=== PATIENT | female | born 1955 | race Caucasian/White ===

== ENCOUNTER → 2019-03-04 | Outpatient (CLI) | payer OTHER ==
[~2019-03-04] MED LIST: RT-ALBUTEROL SULF 2.5 MG/3 ML PRE-MIX VIAL INH ONE; RT-ALBUTEROL SULF 2.5 MG/3 ML PRE-MIX VIAL ONE
== END ==
LOC: RT 10:41
PROVIDERS: ATTEND Surgery
DX: Z02.71 Encounter for disability determination (principal); F32.9 Major depressive disorder, single episode, unspecified; R03.0 Elevated blood-pressure reading, without diagnosis of hypertension; R06.02 Shortness of breath
CPT/HCPCS: 94060; 94640; 94729

== ENCOUNTER → 2019-03-15 | Outpatient (CLI) | payer OTHER ==
--- NOTE | 2019-03-15 15:04 | Diagnostic Imaging Report ---
Patient History: Hypertension. Shortness of breath. Technique: Two views of the chest Comparison: None FINDINGS: The lung volumes are normal. No focal consolidation is seen. No large pleural effusion or pneumothorax is seen. The cardiomediastinal silhouette is normal in size and contour. No acute osseous abnormality is seen. IMPRESSION: No acute pulmonary abnormality seen. Dictated by: Dictated on workstation # [id number]
== END ==
LOC: RAD 13:52
PROVIDERS: ATTEND Surgery
DX: Z02.71 Encounter for disability determination (principal); F32.9 Major depressive disorder, single episode, unspecified; I10 Essential (primary) hypertension; R06.02 Shortness of breath
CPT/HCPCS: 71046

== ENCOUNTER 2020-10-23 19:56 | Emergency (ER) | payer MEDICARE, MEDICAID ==
--- NOTE | 2020-10-23 20:13 | ED CPR ---
HPI-CPR General Stated Complaint: PEDRO FABIAN History of Present Illness Date Seen by Provider: Oct 23, 2020 Time Seen by Provider: 20:00 Initial Comments 65-year-old female brought in by EMS with CODE BLUE in process. EMS was called out for unresponsive patient. Patient has been unresponsive for unknown time. When EMS arrived patient had agonal breathing, CPR was started. Patient's in itial rhythm in the field was asystole. She was given epinephrine. She had a brief episode of V. fib which shock was given. Patient's next rhythm was asystole. EMS arrived with approximately 15 to 20 minutes of CPR in progress. Upon arrival to ER, rhythm check was performed patient was in asystole along with bedside ultrasound. Bedside ultrasound showed no cardiac activity. Another round of epinephrine was given with approximately 3 to 5 minutes more of CPR. At that time another ultrasound was obtained which once again showed no cardiac rhythm with asystole. At that time code was called and patient was determined to be . Patient went to lay down her today because she was not feeling well. Upon arrival she already has some mottling of her lower extremities. Patient had a Combitube in place. Allergies and Home Medications Allergies Coded Allergies: No Known Drug Allergies (Unverified , 03/04/19) Patient Home Medication List Home Medication List Reviewed: Yes Review of Systems Review of Systems Constitutional: see HPI Other Comments Patient intubated, CPR in progress Past Teukjlg-Hdremb-Zbnplb Hx Past Med/Social Hx: Reviewed Nursing Past Med/Soc Hx Physical Exam Vital Signs Vital Signs - First Documented 10/23/20 19:56 O2 Delivery Ambu Bag Capillary Refill : Height, Weight, BMI Height: '" Weight: lbs. oz. kg; BMI Method: General Appearance: Other (cpr in progress ) Neck: Supple Respiratory: Other (intubated, assisted breathing ) Cardiovascular: Other Skin: Cool, Other (Discoloration from approximately mid chest up consistent with possible PE, slight mottling bilateral lower extremities) Progress/Results/Core Measures Results/Orders Vital Signs/I&O 10/23/20 19:56 B/P (MAP) O2 Delivery Ambu Bag Progress Progress Note : Progress Note Please see HPI for ER course along with code sheet for CPR course Departure Impression Primary Impression: Cardiac arrest Disposition: 20 Condition: Stable Departure-Patient Inst. Referrals: NO,LOCAL PHYSICIAN (PCP/Family) Primary Care Physician IBRAHIMA LOMBARDO DO Oct 23, 2020 20:13
== END 2020-10-23 22:24 | disposition expired ==
LOC: EDUNIT# 20:00 → ER FS 20:01
DX: I46.9 Cardiac arrest, cause unspecified (principal)
CPT/HCPCS: 99283